=== PATIENT | male | born 1970 | race Caucasian/White ===

== ENCOUNTER 2022-04-14 21:37 | Emergency (ER) | payer OTHER ==
[2022-04-14] MEDS ORDERED: Ibuprofen 800 MG TAB ONE (22:01)
[2022-04-14] MEDS ORDERED: Bicillin LA 1.2 MILLION UNITS/2 ML SYRINGE ONE (22:12)
== END 2022-04-14 22:31 | disposition home or self-care (01) ==
LOC: BURERS 21:37
DX: J02.0 Streptococcal pharyngitis (principal)
CPT/HCPCS: 87430; 96372; 99283; J0561